=== PATIENT | female | born 1960 | race Caucasian/White ===

== ENCOUNTER 2022-04-11 01:14 | Observation (INO) | payer MEDICARE ==
[2022-04-11] MEDS ORDERED: Zithromax 500 MG/ 250 ML NaCl Premix 500 MG/250 ML IVPB IV STA (01:45)
[2022-04-11] MEDS ORDERED: solu-MEDROL 125 MG, Sterile H2O 10 ml 2 ML IV ONE ×2 (01:50)
[2022-04-11] MEDS ORDERED: Sterile H2O 10 ml IJ ONE ×2 (01:56→06:02)
[2022-04-11] MEDS ORDERED: solu-MEDROL ONE ×3 (01:56→17:02)
[2022-04-11] MEDS ORDERED: Zithromax 500 MG/ 250 ML NaCl Premix 500 MG/250 ML IVPB IV ONE (01:56)
[2022-04-11] MEDS ORDERED: DUONEB 0.5-3 MG/3 ml Neb IH ONE (02:01)
[2022-04-11] MEDS: DUONEB 0.5-3 MG/3 ml Neb IH SCH ×5 (02:03→18:56)
[2022-04-11 02:28] LABS: Absolute Neutrophil Ct (ANC) 8.29 x10^3/uL (1.4-6.9); Basophil (Absolute #) 0.07 x10^3/uL (0-0.4); Eosinophil % 0.1 % (0.00-5.0); Eosinophil (Absolute #) 0.01 x10^3/uL (0-0.5); Hematocrit 38.5 % (35-47); Hemoglobin 12.3 g/dL (12.0-16.0); Lymphocyte (Absolute #) 0.68 x10^3/uL (1.0-4.6); Lymphocytes % 6.9 % (24.0-44.0); Mean Cell Volume 104.9 fL (78-100); Mean Corpuscular Hemoglobin 33.5 pg (26-32); Mean Corpuscular Hgb Concent. 31.9 g/dL (32-36); Mean Platelet Volume 9.3 fL (7.5-11.0); Monocyte (Absolute #) 0.81 x10^3/uL (0.0-1.3); Monocytes % 8.2 % (0.0-12.0); Neutrophil % 83.7 % (36.0-66.0); Platelet Count 157 x10^3/uL (150-450); Red Blood Count 3.67 x10^6/uL (4.1-5.4); Red Cell Distribution Width 12.6 % (11.5-14.0); White Blood Count 9.9 x10^3/uL (4.0-10.5)
[2022-04-11 02:49] LABS: INR 0.97 (0.8-3.0); PROTIME 10.3 SECONDS (9.4-12.5); PTT 30.9 SECONDS (25.1-36.5)
[2022-04-11 02:53] LABS: ALBUMIN 3.7 g/dL (3.5-5.0); ALKALINE PHOSPHATASE 51 U/L (38-126); ANION GAP 7.8 MEQ/L (5-15); BLOOD UREA NITROGEN 6 mg/dL (7-17); CHLORIDE 91 mmol/L (98-107); Calcium 7.7 mg/dL (8.4-10.2); Carbon Dioxide 28 mmol/L (22-30); Creatinine 1 0.35 mg/dL (0.52-1.04); EST GLOMERULAR FILTRATION RATE > 60.0 ML/MIN; Glucose 131 mg/dL (74-106); MAGNESIUM 1.9 mg/dL (1.6-2.3); NT PRO BNP 777 pg/mL (0-900); Potassium 3.8 mmol/L (3.5-5.1); SGOT/AST 29 U/L (14-36); SGPT/ALT 17 U/L (0-35); SODIUM 123 mmol/L (137-145)
[2022-04-11 03:06] LABS: INFLUENZA B NEGATIVE (NEGATIVE); RESPIRATORY SYNCTIAL VIRUS NEGATIVE (Negative); SARS-CoV-2 Xpert Express NEGATIVE (NEGATIVE)
[2022-04-11 03:19] LABS: INFLUENZA A POSITIVE (NEGATIVE)
[2022-04-11] MEDS: Sodium Chloride 0.9% 1000 ML 1,000 ML IV SCH ×3 (03:31→22:09)
--- NOTE | 2022-04-11 03:52 | ERPHSYRPT ---
- History of Present Illness Source: patient Exam Limitations: no limitations Patient Subjective Stated Complaint: pt states she has been coughing fo three days and states she has COPD and feels SOB, not able to sleep because of her cough. Triage Nursing Assessment: pt alert and oriented, laying in bed, SOB Physician History: 62yo F presents to the ER w/ a 3 day hx of worsening SOB. She reports a dry cough and congestion for the past 4 days. She has had sick contacts just prior to getting sick. She reports F/C, wheezing, orthopnea and worsening SOB today. She has been using Albuterol inhaler 3-4 times per day and Mucinex w/ minimal relief. She denies CP, N/V. She continues to smoke 1-2ppd. Timing/Duration: day(s) (3) Activities at Onset: rest Severity of Dyspnea-Max: severe Severity of Dyspnea-Current: severe Possible Cause: illness exposure Modifying Factors: Improves With: albuterol inhaler, albuterol nebulizer, oxygen. Worsens With: activity, coughing, deep breath, exertion, lying down Associated Symptoms: cough, fever, loss of appetite, wheezing, weakness, chills, painful breathing, No chest pain/discomfort, No edema, No calf pain, No leg swelling Allergies/Adverse Reactions: No Known Drug Allergies Allergy (Unverified 04/11/22 01:34) Home Medications: Amlodipine Besylate 5 mg [Norvasc 5 mg] 5 mg PO DAILY 04/11/22 [History] Fenofibrate Nanocrystallized [Fenofibrate] 48 mg PO DAILY 04/11/22 [History] Gabapentin [Neurontin ] 300 mg PO BID 04/11/22 [History] Levothyroxine Sodium 50 mcg PO DAILY 04/11/22 [History] Metoprolol Tartrate 50 mg [Lopressor 50 MG] 50 mg PO BID 04/11/22 [History] Mirtazapine 45 mg PO HS 04/11/22 [History] Quetiapine Fumarate 400 mg PO HS 04/11/22 [History] buPROPion HCL [Bupropion HCl Sr] 150 mg PO BID 04/11/22 [History] Hx Influenza Vaccination/Date Given: Yes Hx Pneumococcal Vaccination/Date Given: No Travel Risk - International Travel Have you traveled outside of the country in past 3 weeks: No - Coronavirus Screening Are you exhibiting any of the following symptoms?: Yes Symptoms: Cough: New Onset, Shortness of Breath Close contact with a COVID-19 positive Pt in past 14-21 Days: No - Vaccine Status Have you recieved a Covid-19 vaccination: Yes [address] Res[employer]: Pfizer - Vaccination Dates Date of 2cond Vaccination (if applicable): unknown - Review of Systems Constitutional: Fever, Chills, Fatigue, Malaise, Weakness Eyes: No Symptoms Ears, Nose, & Throat: No Symptoms Respiratory: Cough, Dyspnea, Dyspnea on Exertion (SWARTZ), Wheezing Cardiac: Orthopnea, No Chest Pain, No Edema, No PND Abdominal/Gastrointestinal: No Symptoms Genitourinary Symptoms: No Symptoms Musculoskeletal: No Symptoms Skin: No Symptoms Neurological: No Symptoms Psychological: No Symptoms Endocrine: No Symptoms Hematologic/Lymphatic: No Symptoms Immunological/Allergic: No Symptoms All Other Systems: Reviewed and Negative - Past Medical History Pertinent Past Medical History: Yes Neurological History: Peripheral Neuropathy Cardiac History: Hypertension Respiratory History: COPD Psycho-Social History: Bipolar, Depression Other Medical History: infection in knee - Past Surgical History Past Surgical History: Yes Other Surgical History: 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, ablasion, jaw wired shut - Social History Smoking Status: Current every day smoker Drug Use: none Patient Lives Alone: No - Nursing Vital Signs Nursing Vital Signs: Initial Vital Signs Temperature 98.6 F 04/11/22 01:16 Respiratory Rate 93 H 04/11/22 01:16 O2 Sat by Pulse Oximetry 97 04/11/22 01:16 Pain Scale Pain Intensity 6 - Physical Exam General Appearance: moderate distress Eye Exam: PERRL/EOMI Ears, Nose, Throat Exam: hearing grossly normal Neck Exam: normal inspection, non-tender, supple, full range of motion Respiratory Exam: respiratory distress, diminished breath sounds, wheezing, No accessory muscle use Cardiovascular/Chest Exam: normal heart sounds, regular rate/rhythm Abdominal/Gastrointestinal Exam: soft, No tenderness, No distention, No guarding, No rebound Extremity Exam: No no calf tenderness, No swelling, No melani's sign Neurologic Exam: alert, oriented x 3, cooperative Skin Exam: normal color, warm, dry SpO2 Interpretation: normal SpO2: 97 O2 Delivery: Nasal Cannula - Course Nursing assessment & vital signs reviewed: Yes EKG Interpreted by Me: RATE (92), Sinus Rhythm, NORMAL AXIS, NORMAL INTERVALS, NORMAL QRS, NORMAL ST-T - Radiology Exams Chest X-ray Interpretation: Interpreted by me, Other (hyperinflated) Ordered Tests: Medication Summary Discontinued Medications Generic Name Dose Route Start Last Admin Trade Name Freq PRN Reason Stop Dose Admin Albuterol/Ipratropium 3 ml 04/11/22 01:51 04/11/22 04:54 Ipratropium/Albuterol Sulfate 3 Ml Ampul.Neb 05/11/22 01:50 Not Given Q4HRT RADHA Albuterol/Ipratropium Confirm 04/11/22 02:01 Ipratropium/Albuterol Sulfate 3 Ml Ampul.Neb Administered 04/11/22 02:02 Dose 3 ml IH .STK-MED ONE Albuterol/Ipratropium 3 ml 04/11/22 07:00 04/12/22 07:23 Ipratropium/Albuterol Sulfate 3 Ml Ampul.Counts include 234 beds at the [facility] 05/11/22 06:59 3 ml Q6HRT RADHA Administration Amlodipine Besylate 5 mg 04/12/22 10:00 Amlodipine Besylate 5 Mg Tablet PO 05/12/22 09:59 DAILY RADHA Azithromycin 250 mg 04/11/22 22:00 04/11/22 21:34 Azithromycin 250 Mg Tablet PO 04/15/22 21:59 250 mg DAILY RADHA Administration Bupropion HCl 150 mg 04/11/22 22:00 04/11/22 21:35 Bupropion Hcl 150 Mg Tablet Sr PO 04/13/22 21:59 150 mg BID RADHA Administration Methylprednisolone Sodium 0 mg 04/11/22 01:50 04/11/22 01:58 Succinate 125 mg/ Sterile IV 04/11/22 01:51 125 mg Water 2 ml STAT ONE Administration Methylprednisolone Sodium 0 mg 04/11/22 06:00 04/12/22 05:16 Succinate 60 mg/ Sterile Water IV 05/11/22 05:59 60 mg 2 ml Q6HT RADAH Administration Enoxaparin Sodium 40 mg 04/11/22 10:00 04/11/22 10:40 Enoxaparin Sodium 40 Mg/0.4 Ml Syringe SQ 05/11/22 09:59 40 mg DAILY RADHA Administration Famotidine 20 mg 04/11/22 10:00 04/11/22 21:35 Famotidine 20 Mg/1 Vial IV 05/11/22 09:59 20 mg Q12HT RADHA Administration Fenofibrate 72.5 mg 04/12/22 10:00 Fenofibrate,Micronized 145 Mg Tablet PO 05/12/22 09:59 DAILY RADHA Gabapentin 300 mg 04/11/22 22:00 04/11/22 21:34 Gabapentin 300 Mg Capsule PO 05/11/22 21:59 300 mg BID RADHA Administration Azithromycin 500 mg in 250 mls @ 250 mls/hr 04/11/22 01:45 04/11/22 02:58 Zithromax 500 Mg/ 250 Ml Nacl Premix IV 04/11/22 02:44 Infused STAT STA Infusion Azithromycin Confirm 04/11/22 01:56 Zithromax 500 Mg/ 250 Ml Nacl Premix Administered 04/11/22 01:57 Dose 500 mg in 250 mls @ ud IV .STK-MED ONE Sodium Chloride 1,000 mls @ 100 mls/hr 04/11/22 03:15 04/11/22 22:09 Sodium Chloride 0.9% 1000 Ml IV 05/11/22 03:14 100 mls/hr .Q10H RADHA Administration Levothyroxine Sodium 50 mcg 04/12/22 10:00 Levothyroxine Sodium 50 Mcg Tablet PO 05/12/22 09:59 DAILY RADHA Lorazepam 0.5 mg 04/11/22 18:51 Lorazepam 0.5 Mg Tablet PO 05/11/22 18:50 TID PRN PRN ANXIETY Methylprednisolone Sodium Succinate Confirm 04/11/22 01:56 Methylprednis Sod Succ 125 Mg/2 Ml Vial Administered 04/11/22 01:57 Dose 125 mg .ROUTE .STK-MED ONE Methylprednisolone Sodium Succinate Confirm 04/11/22 06:02 Methylprednis Sod Succ 125 Mg/2 Ml Vial Administered 04/11/22 06:03 Dose 125 mg .ROUTE .STK-MED ONE Methylprednisolone Sodium Succinate Confirm 04/11/22 17:02 Methylprednis Sod Succ 125 Mg/2 Ml Vial Administered 04/11/22 17:03 Dose 125 mg .ROUTE .STK-MED ONE Metoprolol Tartrate 50 mg 04/11/22 22:00 04/11/22 21:34 Metoprolol Tartrate 50 Mg Tablet PO 05/11/22 21:59 50 mg BID RADHA Administration Mirtazapine 45 mg 04/11/22 22:00 04/11/22 21:34 Mirtazapine 30 Mg Tablet PO 05/11/22 21:59 45 mg HS RADHA Administration Nicotine 21 mg 04/11/22 10:30 04/11/22 13:36 Nicotine 21 Mg/Patch Patch TOP 05/11/22 10:29 Not Given Q24H RADHA Quetiapine Fumarate 400 mg 04/11/22 22:00 04/11/22 21:48 Quetiapine Fumarate 100 Mg Tablet PO 05/11/22 21:59 Not Given HS RADHA Sterile Water Confirm 04/11/22 01:56 Water For Injection,Sterile 10 Ml Vial Administered 04/11/22 01:57 Dose 10 ml IJ .STK-MED ONE Sterile Water Confirm 04/11/22 06:02 Water For Injection,Sterile 10 Ml Vial Administered 04/11/22 06:03 Dose 10 ml IJ .STK-MED ONE Lab/Rad Data: Laboratory Result Diagrams 04/11/22 02:15 04/11/22 02:15 Laboratory Results 04/11/22 04/11/22 04/11/22 Range/Units 03:50 03:50 02:19 WBC (4.0-10.5) x10^3/uL RBC (4.1-5.4) x10^6/uL Hgb (12.0-16.0) g/dL Hct (35-47) % MCV (78-100) fL MCH (26-32) pg MCHC (32-36) g/dL RDW (11.5-14.0) % Plt Count (150-450) x10^3/uL MPV (7.5-11.0) fL Gran % (36.0-66.0) % Immature Gran % (Auto) (0.00-0.4) % Nucleat RBC Rel Count (0.00-0.1) % Eos # (Auto) (0-0.5) x10^3/uL Immature Gran # (Auto) (0.00-0.03) x10^3u/L Absolute Lymphs (auto) (1.0-4.6) x10^3/uL Absolute Monos (auto) (0.0-1.3) x10^3/uL Absolute Nucleated RBC (0.00-0.01) x10^3u/L Lymphocytes % (24.0-44.0) % Monocytes % (0.0-12.0) % Eosinophils % (0.00-5.0) % Basophils % (0.0-0.4) % Absolute Granulocytes (1.4-6.9) x10^3/uL Basophils # (0-0.4) x10^3/uL PT (9.4-12.5) SECONDS INR (0.8-3.0) APTT (25.1-36.5) SECONDS Sodium (137-145) mmol/L Potassium (3.5-5.1) mmol/L Chloride (98-107) mmol/L Carbon Dioxide (22-30) mmol/L Anion Gap (5-15) MEQ/L BUN (7-17) mg/dL Creatinine (0.52-1.04) mg/dL Estimated GFR ML/MIN Glucose (74-106) mg/dL Serum Osmolality Pending Lactic Acid 1.2 (0.4-2.0) Calcium (8.4-10.2) mg/dL Magnesium (1.6-2.3) mg/dL Total Bilirubin (0.2-1.3) mg/dL AST (14-36) U/L ALT (0-35) U/L Alkaline Phosphatase (38-126) U/L Troponin I (0.000-0.034) ng/mL NT-Pro-B Natriuret Pep (0-900) pg/mL Serum Total Protein (6.3-8.2) g/dL Albumin (3.5-5.0) g/dL Procalcitonin (0.030-0.080) ng/mL Urine Osmolality 204 (.) mOsmol/kg Ur Random Creatinine 43.4 mg/dl U Random Total Protein 35.0 (<12) mg/dl U [place] Prot/Creat Ratio 0.81 H (0.0-0.15) mg/mg Urine Sodium 5 L (30-90) mmol/L Influenza Type A Ag (NEGATIVE) Influenza Type B Ag (NEGATIVE) RSV (PCR) (Negative) SARS-CoV-2 (PCR) (NEGATIVE) 04/11/22 04/11/22 04/11/22 Range/Units 02:15 02:15 02:15 WBC (4.0-10.5) x10^3/uL RBC (4.1-5.4) x10^6/uL Hgb (12.0-16.0) g/dL Hct (35-47) % MCV (78-100) fL MCH (26-32) pg MCHC (32-36) g/dL RDW (11.5-14.0) % Plt Count (150-450) x10^3/uL MPV (7.5-11.0) fL Gran % (36.0-66.0) % Immature Gran % (Auto) (0.00-0.4) % Nucleat RBC Rel Count (0.00-0.1) % Eos # (Auto) (0-0.5) x10^3/uL Immature Gran # (Auto) (0.00-0.03) x10^3u/L Absolute Lymphs (auto) (1.0-4.6) x10^3/uL Absolute Monos (auto) (0.0-1.3) x10^3/uL Absolute Nucleated RBC (0.00-0.01) x10^3u/L Lymphocytes % (24.0-44.0) % Monocytes % (0.0-12.0) % Eosinophils % (0.00-5.0) % Basophils % (0.0-0.4) % Absolute Granulocytes (1.4-6.9) x10^3/uL Basophils # (0-0.4) x10^3/uL PT (9.4-12.5) SECONDS INR (0.8-3.0) APTT (25.1-36.5) SECONDS Sodium (137-145) mmol/L Potassium (3.5-5.1) mmol/L Chloride (98-107) mmol/L Carbon Dioxide (22-30) mmol/L Anion Gap (5-15) MEQ/L BUN (7-17) mg/dL Creatinine (0.52-1.04) mg/dL Estimated GFR ML/MIN Glucose (74-106) mg/dL Serum Osmolality Lactic Acid (0.4-2.0) Calcium (8.4-10.2) mg/dL Magnesium (1.6-2.3) mg/dL Total Bilirubin (0.2-1.3) mg/dL AST (14-36) U/L ALT (0-35) U/L Alkaline Phosphatase (38-126) U/L Troponin I < 0.012 (0.000-0.034) ng/mL NT-Pro-B Natriuret Pep (0-900) pg/mL Serum Total Protein (6.3-8.2) g/dL Albumin (3.5-5.0) g/dL Procalcitonin 0.086 H (0.030-0.080) ng/mL Urine Osmolality (.) mOsmol/kg Ur Random Creatinine mg/dl U Random Total Protein (<12) mg/dl U [place] Prot/Creat Ratio (0.0-0.15) mg/mg Urine Sodium (30-90) mmol/L Influenza Type A Ag POSITIVE (NEGATIVE) Influenza Type B Ag NEGATIVE (NEGATIVE) RSV (PCR) NEGATIVE (Negative) SARS-CoV-2 (PCR) NEGATIVE (NEGATIVE) 04/11/22 04/11/22 04/11/22 Range/Units 02:15 02:15 02:15 WBC 9.9 (4.0-10.5) x10^3/uL RBC 3.67 L (4.1-5.4) x10^6/uL Hgb 12.3 (12.0-16.0) g/dL Hct 38.5 (35-47) % MCV 104.9 H (78-100) fL MCH 33.5 H (26-32) pg MCHC 31.9 L (32-36) g/dL RDW 12.6 (11.5-14.0) % Plt Count 157 (150-450) x10^3/uL MPV 9.3 (7.5-11.0) fL Gran % 83.7 H (36.0-66.0) % Immature Gran % (Auto) 0.4 (0.00-0.4) % Nucleat RBC Rel Count 0.0 (0.00-0.1) % Eos # (Auto) 0.01 (0-0.5) x10^3/uL Immature Gran # (Auto) 0.04 H (0.00-0.03) x10^3u/L Absolute Lymphs (auto) 0.68 L (1.0-4.6) x10^3/uL Absolute Monos (auto) 0.81 (0.0-1.3) x10^3/uL Absolute Nucleated RBC 0.00 (0.00-0.01) x10^3u/L Lymphocytes % 6.9 L (24.0-44.0) % Monocytes % 8.2 (0.0-12.0) % Eosinophils % 0.1 (0.00-5.0) % Basophils % 0.7 (0.0-0.4) % Absolute Granulocytes 8.29 H (1.4-6.9) x10^3/uL Basophils # 0.07 (0-0.4) x10^3/uL PT 10.3 (9.4-12.5) SECONDS INR 0.97 (0.8-3.0) APTT 30.9 (25.1-36.5) SECONDS Sodium 123 L (137-145) mmol/L Potassium 3.8 (3.5-5.1) mmol/L Chloride 91 L (98-107) mmol/L Carbon Dioxide 28 (22-30) mmol/L Anion Gap 7.8 (5-15) MEQ/L BUN 6 L (7-17) mg/dL Creatinine 0.35 L (0.52-1.04) mg/dL Estimated GFR > 60.0 ML/MIN Glucose 131 H (74-106) mg/dL Serum Osmolality Lactic Acid (0.4-2.0) Calcium 7.7 L (8.4-10.2) mg/dL Magnesium 1.9 (1.6-2.3) mg/dL Total Bilirubin 0.50 (0.2-1.3) mg/dL AST 29 (14-36) U/L ALT 17 (0-35) U/L Alkaline Phosphatase 51 (38-126) U/L Troponin I (0.000-0.034) ng/mL NT-Pro-B Natriuret Pep 777 (0-900) pg/mL Serum Total Protein 7.0 (6.3-8.2) g/dL Albumin 3.7 (3.5-5.0) g/dL Procalcitonin (0.030-0.080) ng/mL Urine Osmolality (.) mOsmol/kg Ur Random Creatinine mg/dl U Random Total Protein (<12) mg/dl U [place] Prot/Creat Ratio (0.0-0.15) mg/mg Urine Sodium (30-90) mmol/L Influenza Type A Ag (NEGATIVE) Influenza Type B Ag (NEGATIVE) RSV (PCR) (Negative) SARS-CoV-2 (PCR) (NEGATIVE) - Progress Progress: improved Air Movement: fair Progress Note: Improved air movement after steroids and nebs. Flu A positive. Na 123 saline given and urine studies ordered. Discussed w/ Dr. Cobb and will accept for observation. 04/13/22 17:06 04/13/22 17:07 Blood Culture(s) Obtained: Yes Antibiotics given: No Discussed with : Nelson Will see patient in: hospital (observation) Counseled pt/family regarding: lab results, diagnosis, rad results, smoking cessation - Departure Departure Disposition: Observation Clinical Impression: COPD exacerbation, Influenza A, Hyponatremia Condition: Good Critical Care Time: Yes Critical Care Time(excluding separately billable procedures): Critical 30-74 mins
[2022-04-11 04:58] LABS: Creatinine, Urine Random 43.4 mg/dl; Protein Creatinine Ratio, Ran. 0.81 mg/mg (0.0-0.15)
[2022-04-11] MEDS: solu-MEDROL 60 MG, Sterile H2O 10 ml 2 ML IV SCH ×8 (06:02→23:21)
[2022-04-11 08:18] LABS: ANION GAP 6.4 MEQ/L (5-15); BLOOD UREA NITROGEN 6 mg/dL (7-17); CHLORIDE 99 mmol/L (98-107); Calcium 7.7 mg/dL (8.4-10.2); Carbon Dioxide 29 mmol/L (22-30); Creatinine 1 0.28 mg/dL (0.52-1.04); EST GLOMERULAR FILTRATION RATE > 60.0 ML/MIN; Glucose 142 mg/dL (74-106); Potassium 4.1 mmol/L (3.5-5.1); SODIUM 130 mmol/L (137-145)
[2022-04-11 08:29] LABS: Hematocrit 37.4 % (35-47); Hemoglobin 11.9 g/dL (12.0-16.0); Mean Cell Volume 104.2 fL (78-100); Mean Corpuscular Hemoglobin 33.1 pg (26-32); Mean Corpuscular Hgb Concent. 31.8 g/dL (32-36); Mean Platelet Volume 9.7 fL (7.5-11.0); Platelet Count 175 x10^3/uL (150-450); Red Blood Count 3.59 x10^6/uL (4.1-5.4); Red Cell Distribution Width 12.5 % (11.5-14.0); White Blood Count 6.9 x10^3/uL (4.0-10.5)
--- NOTE | 2022-04-11 09:38 | XRAY ---
Indication: Dyspnea. Comparison: None Portable chest hyperinflated and clear with incidental left base calcified granuloma. Heart not enlarged. Bony thorax intact with mild osteopenia and degenerative changes. Impression: Nonacute hyperinflated chest with chronic features.
[2022-04-11] MEDS ORDERED: ENOXAPARIN SODIUM SQ SCH (10:00)
[2022-04-11] MEDS: Nicoderm CQ 21 MG TOP SCH ×2 (10:39→13:36)
[2022-04-11] MEDS: Pepcid 20 MG VIAL IV SCH ×2 (10:40→21:35)
[2022-04-11 11:19] LABS: ANION GAP 7.9 MEQ/L (5-15); BLOOD UREA NITROGEN 6 mg/dL (7-17); CHLORIDE 98 mmol/L (98-107); Calcium 7.8 mg/dL (8.4-10.2); Carbon Dioxide 29 mmol/L (22-30); Creatinine 1 0.41 mg/dL (0.52-1.04); EST GLOMERULAR FILTRATION RATE > 60.0 ML/MIN; Glucose 189 mg/dL (74-106); Potassium 3.8 mmol/L (3.5-5.1); SODIUM 132 mmol/L (137-145)
[2022-04-11 16:24] LABS: ANION GAP 5.3 MEQ/L (5-15); BLOOD UREA NITROGEN 6 mg/dL (7-17); CHLORIDE 100 mmol/L (98-107); Calcium 7.6 mg/dL (8.4-10.2); Carbon Dioxide 30 mmol/L (22-30); Creatinine 1 0.34 mg/dL (0.52-1.04); EST GLOMERULAR FILTRATION RATE > 60.0 ML/MIN; Glucose 210 mg/dL (74-106); Potassium 3.7 mmol/L (3.5-5.1); SODIUM 132 mmol/L (137-145)
--- NOTE | 2022-04-11 17:59 | PCM.HP ---
History of Present Illness - Chief Complaint Chief Complaint: COPD exacerbation History of Present Illness: is a 62 year old female patient of Dr Yuniel Hidalgo with COPD who presented to ER in respiratory distress c/o cough , shortness of breath and tested positive for Influenza A . CXR showed nonacute hyperinflated lung,no cardiomegaly. PMHx includes HTN,COPD daily smoker,bipoalar depression. Patient is admitted to Med surg overnight observation and improved with O2 support,IV Solumedrol ,Zithromax , IV fluids and Neb treatments . - Review of Systems Constitutional: Chills, Fatigue Eyes: No Symptoms Ears, Nose, & Throat: Nose Discharge Respiratory: Cough, Short Of Breath, Wheezing Cardiac: Palpitations, No Chest Pain, No Edema Abdominal/Gastrointestinal: No Symptoms Genitourinary Symptoms: No Symptoms Musculoskeletal: No Symptoms Skin: No Symptoms Neurological: No Symptoms Psychological: Depression (Bipolar controlled on Rx) Endocrine: No Symptoms Hematologic/Lymphatic: No Symptoms Immunological/Allergic: No Symptoms Medications & Allergies Home Medications: Home Medication List Amlodipine Besylate 5 mg [Norvasc 5 mg] 5 mg PO DAILY 04/11/22 [History Confirmed 04/11/22] Fenofibrate Nanocrystallized [Fenofibrate] 48 mg PO DAILY 04/11/22 [History Con firmed 04/11/22] Gabapentin [Neurontin ] 300 mg PO BID 04/11/22 [History Confirmed 04/11/22] Levothyroxine Sodium 50 mcg PO DAILY 04/11/22 [History Confirmed 04/11/22] Metoprolol Tartrate 50 mg [Lopressor 50 MG] 50 mg PO BID 04/11/22 [History Confirmed 04/11/22] Mirtazapine 45 mg PO HS 04/11/22 [History Confirmed 04/11/22] Quetiapine Fumarate 400 mg PO HS 04/11/22 [History Confirmed 04/11/22] buPROPion HCL [Bupropion HCl Sr] 150 mg PO BID 04/11/22 [History Confirmed 04/11/22] Albuterol/Ipratropium 3ml Neb* [DUONEB 0.5-3 MG/3 ml Neb] 3 ml IH TID #90 amp 04/12/22 [Rx] Azithromycin 250 mg [Zithromax 250 MG TABLET] 250 mg PO DAILY #6 tablet 04/12/22 [Rx] Methylprednisolone Packet [Medrol Dosepack] 4 mg PO DAILY #1 packet 04/12/22 [Rx] Allergies/Adverse Reactions: Allergies Allergy/AdvReac Type Severity Reaction Status Date / Time No Known Drug Allergies Allergy Unverified 04/11/22 01:34 - Past Medical History Past Medical History: Yes Neurological History: Peripheral Neuropathy ENT History: No Pertinent History Cardiac History: Hypertension Respiratory History: COPD Endocrine Medical History: No Pertinent History Musculoskelatal History: No Pertinent History GI Medical History: No Pertinent History History: No Pertinent History Pyscho-Social History: Bipolar, Depression Reproductive Disorders: No Pertinent History Comment: infection in knee - Female History Are you now?: No - Past Surgical History Past Surgical History: Yes Other Surgical History: 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, ablasion, jaw wired shut - Social History Smoking Status: Current every day smoker Exposure to second hand smoke: Yes Alcohol: Daily Drug Use: none - Physical Exam Vital Signs: Vital Signs - 24 hr Temp Pulse Resp BP Pulse Ox 04/11/22 16:00 97.5 F 99 H 19 129/61 94 L 04/11/22 13:08 95 H 24 90 L 04/11/22 11:26 97.8 F 92 H 19 150/60 90 L 04/11/22 07:59 98 H 18 96 04/11/22 07:26 98.0 F 76 19 107/58 100 04/11/22 04:54 98.1 F 80 22 114/56 98 04/11/22 04:00 77 106/70 98 04/11/22 03:51 97 04/11/22 03:00 83 99/57 97 04/11/22 02:16 77 22 145/95 98 04/11/22 02:03 82 18 98 04/11/22 01:16 98.6 F 93 H 97 General Appearance: no apparent distress Neurologic Exam: alert, oriented x 3, cooperative, normal mood/affect Eye Exam: eyes nml inspection Ears, Nose, Throat Exam: moist mucous membranes, other (mild nasal congestion) Neck Exam: normal inspection Respiratory Exam: diminished breath sounds, wheezing (fine eew left mid) Cardiovascular Exam: regular rate/rhythm Gastrointestinal/Abdomen Exam: soft, No tenderness Back Exam: normal inspection Extremity Exam: normal inspection, No calf tenderness Skin Exam: normal color, warm, dry Results - Labs Lab/Micro Results: Lab Results-Last 24 Hours 04/11/22 04/11/22 04/11/22 Range/Units 02:15 02:15 02:15 WBC 9.9 (4.0-10.5) x10^3/uL RBC 3.67 L (4.1-5.4) x10^6/uL Hgb 12.3 (12.0-16.0) g/dL Hct 38.5 (35-47) % MCV 104.9 H (78-100) fL MCH 33.5 H (26-32) pg MCHC 31.9 L (32-36) g/dL RDW 12.6 (11.5-14.0) % Plt Count 157 (150-450) x10^3/uL MPV 9.3 (7.5-11.0) fL Gran % 83.7 H (36.0-66.0) % Immature Gran % (Auto) 0.4 (0.00-0.4) % Nucleat RBC Rel Count 0.0 (0.00-0.1) % Eos # (Auto) 0.01 (0-0.5) x10^3/uL Immature Gran # (Auto) 0.04 H (0.00-0.03) x10^3u/L Absolute Lymphs (auto) 0.68 L (1.0-4.6) x10^3/uL Absolute Monos (auto) 0.81 (0.0-1.3) x10^3/uL Absolute Nucleated RBC 0.00 (0.00-0.01) x10^3u/L Lymphocytes % 6.9 L (24.0-44.0) % Monocytes % 8.2 (0.0-12.0) % Eosinophils % 0.1 (0.00-5.0) % Basophils % 0.7 (0.0-0.4) % Absolute Granulocytes 8.29 H (1.4-6.9) x10^3/uL Basophils # 0.07 (0-0.4) x10^3/uL PT 10.3 (9.4-12.5) SECONDS INR 0.97 (0.8-3.0) APTT 30.9 (25.1-36.5) SECONDS Sodium 123 L (137-145) mmol/L Potassium 3.8 (3.5-5.1) mmol/L Chloride 91 L (98-107) mmol/L Carbon Dioxide 28 (22-30) mmol/L Anion Gap 7.8 (5-15) MEQ/L BUN 6 L (7-17) mg/dL Creatinine 0.35 L (0.52-1.04) mg/dL Estimated GFR > 60.0 ML/MIN Glucose 131 H (74-106) mg/dL Lactic Acid (0.4-2.0) Calcium 7.7 L (8.4-10.2) mg/dL Magnesium 1.9 (1.6-2.3) mg/dL Total Bilirubin 0.50 (0.2-1.3) mg/dL AST 29 (14-36) U/L ALT 17 (0-35) U/L Alkaline Phosphatase 51 (38-126) U/L Troponin I (0.000-0.034) ng/mL NT-Pro-B Natriuret Pep 777 (0-900) pg/mL Serum Total Protein 7.0 (6.3-8.2) g/dL Albumin 3.7 (3.5-5.0) g/dL Prealbumin (17.6-36.0) mg/dL Procalcitonin (0.030-0.080) ng/mL Ur Random Creatinine mg/dl U Random Total Protein (<12) mg/dl U Ancram Prot/Creat Ratio (0.0-0.15) mg/mg Urine Sodium (30-90) mmol/L Influenza Type A Ag (NEGATIVE) Influenza Type B Ag (NEGATIVE) RSV (PCR) (Negative) SARS-CoV-2 (PCR) (NEGATIVE) 04/11/22 04/11/22 04/11/22 Range/Units 02:15 02:15 02:15 WBC (4.0-10.5) x10^3/uL RBC (4.1-5.4) x10^6/uL Hgb (12.0-16.0) g/dL Hct (35-47) % MCV (78-100) fL MCH (26-32) pg MCHC (32-36) g/dL RDW (11.5-14.0) % Plt Count (150-450) x10^3/uL MPV (7.5-11.0) fL Gran % (36.0-66.0) % Immature Gran % (Auto) (0.00-0.4) % Nucleat RBC Rel Count (0.00-0.1) % Eos # (Auto) (0-0.5) x10^3/uL Immature Gran # (Auto) (0.00-0.03) x10^3u/L Absolute Lymphs (auto) (1.0-4.6) x10^3/uL Absolute Monos (auto) (0.0-1.3) x10^3/uL Absolute Nucleated RBC (0.00-0.01) x10^3u/L Lymphocytes % (24.0-44.0) % Monocytes % (0.0-12.0) % Eosinophils % (0.00-5.0) % Basophils % (0.0-0.4) % Absolute Granulocytes (1.4-6.9) x10^3/uL Basophils # (0-0.4) x10^3/uL PT (9.4-12.5) SECONDS INR (0.8-3.0) APTT (25.1-36.5) SECONDS Sodium (137-145) mmol/L Potassium (3.5-5.1) mmol/L Chloride (98-107) mmol/L Carbon Dioxide (22-30) mmol/L Anion Gap (5-15) MEQ/L BUN (7-17) mg/dL Creatinine (0.52-1.04) mg/dL Estimated GFR ML/MIN Glucose (74-106) mg/dL Lactic Acid (0.4-2.0) Calcium (8.4-10.2) mg/dL Magnesium (1.6-2.3) mg/dL Total Bilirubin (0.2-1.3) mg/dL AST (14-36) U/L ALT (0-35) U/L Alkaline Phosphatase (38-126) U/L Troponin I < 0.012 (0.000-0.034) ng/mL NT-Pro-B Natriuret Pep (0-900) pg/mL Serum Total Protein (6.3-8.2) g/dL Albumin (3.5-5.0) g/dL Prealbumin (17.6-36.0) mg/dL Procalcitonin 0.086 H (0.030-0.080) ng/mL Ur Random Creatinine mg/dl U Random Total Protein (<12) mg/dl U Ancram Prot/Creat Ratio (0.0-0.15) mg/mg Urine Sodium (30-90) mmol/L Influenza Type A Ag POSITIVE (NEGATIVE) Influenza Type B Ag NEGATIVE (NEGATIVE) RSV (PCR) NEGATIVE (Negative) SARS-CoV-2 (PCR) NEGATIVE (NEGATIVE) 04/11/22 04/11/22 04/11/22 Range/Units 02:19 03:50 07:50 WBC (4.0-10.5) x10^3/uL RBC (4.1-5.4) x10^6/uL Hgb (12.0-16.0) g/dL Hct (35-47) % MCV (78-100) fL MCH (26-32) pg MCHC (32-36) g/dL RDW (11.5-14.0) % Plt Count (150-450) x10^3/uL MPV (7.5-11.0) fL Gran % (36.0-66.0) % Immature Gran % (Auto) (0.00-0.4) % Nucleat RBC Rel Count (0.00-0.1) % Eos # (Auto) (0-0.5) x10^3/uL Immature Gran # (Auto) (0.00-0.03) x10^3u/L Absolute Lymphs (auto) (1.0-4.6) x10^3/uL Absolute Monos (auto) (0.0-1.3) x10^3/uL Absolute Nucleated RBC (0.00-0.01) x10^3u/L Lymphocytes % (24.0-44.0) % Monocytes % (0.0-12.0) % Eosinophils % (0.00-5.0) % Basophils % (0.0-0.4) % Absolute Granulocytes (1.4-6.9) x10^3/uL Basophils # (0-0.4) x10^3/uL PT (9.4-12.5) SECONDS INR (0.8-3.0) APTT (25.1-36.5) SECONDS Sodium (137-145) mmol/L Potassium (3.5-5.1) mmol/L Chloride (98-107) mmol/L Carbon Dioxide (22-30) mmol/L Anion Gap (5-15) MEQ/L BUN (7-17) mg/dL Creatinine (0.52-1.04) mg/dL Estimated GFR ML/MIN Glucose (74-106) mg/dL Lactic Acid 1.2 (0.4-2.0) Calcium (8.4-10.2) mg/dL Magnesium (1.6-2.3) mg/dL Total Bilirubin (0.2-1.3) mg/dL AST (14-36) U/L ALT (0-35) U/L Alkaline Phosphatase (38-126) U/L Troponin I < 0.012 (0.000-0.034) ng/mL NT-Pro-B Natriuret Pep (0-900) pg/mL Serum Total Protein (6.3-8.2) g/dL Albumin (3.5-5.0) g/dL Prealbumin (17.6-36.0) mg/dL Procalcitonin (0.030-0.080) ng/mL Ur Random Creatinine 43.4 mg/dl U Random Total Protein 35.0 (<12) mg/dl U Ancram Prot/Creat Ratio 0.81 H (0.0-0.15) mg/mg Urine Sodium 5 L (30-90) mmol/L Influenza Type A Ag (NEGATIVE) Influenza Type B Ag (NEGATIVE) RSV (PCR) (Negative) SARS-CoV-2 (PCR) (NEGATIVE) 04/11/22 04/11/22 04/11/22 Range/Units 07:50 07:50 07:50 WBC 6.9 (4.0-10.5) x10^3/uL RBC 3.59 L (4.1-5.4) x10^6/uL Hgb 11.9 L (12.0-16.0) g/dL Hct 37.4 (35-47) % MCV 104.2 H (78-100) fL MCH 33.1 H (26-32) pg MCHC 31.8 L (32-36) g/dL RDW 12.5 (11.5-14.0) % Plt Count 175 (150-450) x10^3/uL MPV 9.7 (7.5-11.0) fL Gran % (36.0-66.0) % Immature Gran % (Auto) (0.00-0.4) % Nucleat RBC Rel Count (0.00-0.1) % Eos # (Auto) (0-0.5) x10^3/uL Immature Gran # (Auto) (0.00-0.03) x10^3u/L Absolute Lymphs (auto) (1.0-4.6) x10^3/uL Absolute Monos (auto) (0.0-1.3) x10^3/uL Absolute Nucleated RBC (0.00-0.01) x10^3u/L Lymphocytes % (24.0-44.0) % Monocytes % (0.0-12.0) % Eosinophils % (0.00-5.0) % Basophils % (0.0-0.4) % Absolute Granulocytes (1.4-6.9) x10^3/uL Basophils # (0-0.4) x10^3/uL PT (9.4-12.5) SECONDS INR (0.8-3.0) APTT (25.1-36.5) SECONDS Sodium 130 L D (137-145) mmol/L Potassium 4.1 (3.5-5.1) mmol/L Chloride 99 (98-107) mmol/L Carbon Dioxide 29 (22-30) mmol/L Anion Gap 6.4 (5-15) MEQ/L BUN 6 L (7-17) mg/dL Creatinine 0.28 L (0.52-1.04) mg/dL Estimated GFR > 60.0 ML/MIN Glucose 142 H (74-106) mg/dL Lactic Acid (0.4-2.0) Calcium 7.7 L (8.4-10.2) mg/dL Magnesium (1.6-2.3) mg/dL Total Bilirubin (0.2-1.3) mg/dL AST (14-36) U/L ALT (0-35) U/L Alkaline Phosphatase (38-126) U/L Troponin I (0.000-0.034) ng/mL NT-Pro-B Natriuret Pep (0-900) pg/mL Serum Total Protein (6.3-8.2) g/dL Albumin (3.5-5.0) g/dL Prealbumin 18.16 (17.6-36.0) mg/dL Procalcitonin (0.030-0.080) ng/mL Ur Random Creatinine mg/dl U Random Total Protein (<12) mg/dl U Ancram Prot/Creat Ratio (0.0-0.15) mg/mg Urine Sodium (30-90) mmol/L Influenza Type A Ag (NEGATIVE) Influenza Type B Ag (NEGATIVE) RSV (PCR) (Negative) SARS-CoV-2 (PCR) (NEGATIVE) 04/11/22 04/11/22 04/11/22 Range/Units 11:04 11:04 16:05 WBC (4.0-10.5) x10^3/uL RBC (4.1-5.4) x10^6/uL Hgb (12.0-16.0) g/dL Hct (35-47) % MCV (78-100) fL MCH (26-32) pg MCHC (32-36) g/dL RDW (11.5-14.0) % Plt Count (150-450) x10^3/uL MPV (7.5-11.0) fL Gran % (36.0-66.0) % Immature Gran % (Auto) (0.00-0.4) % Nucleat RBC Rel Count (0.00-0.1) % Eos # (Auto) (0-0.5) x10^3/uL Immature Gran # (Auto) (0.00-0.03) x10^3u/L Absolute Lymphs (auto) (1.0-4.6) x10^3/uL Absolute Monos (auto) (0.0-1.3) x10^3/uL Absolute Nucleated RBC (0.00-0.01) x10^3u/L Lymphocytes % (24.0-44.0) % Monocytes % (0.0-12.0) % Eosinophils % (0.00-5.0) % Basophils % (0.0-0.4) % Absolute Granulocytes (1.4-6.9) x10^3/uL Basophils # (0-0.4) x10^3/uL PT (9.4-12.5) SECONDS INR (0.8-3.0) APTT (25.1-36.5) SECONDS Sodium 132 L 132 L (137-145) mmol/L Potassium 3.8 3.7 (3.5-5.1) mmol/L Chloride 98 100 (98-107) mmol/L Carbon Dioxide 29 30 (22-30) mmol/L Anion Gap 7.9 5.3 (5-15) MEQ/L BUN 6 L 6 L (7-17) mg/dL Creatinine 0.41 L 0.34 L (0.52-1.04) mg/dL Estimated GFR > 60.0 > 60.0 ML/MIN Glucose 189 H 210 H (74-106) mg/dL Lactic Acid (0.4-2.0) Calcium 7.8 L 7.6 L (8.4-10.2) mg/dL Magnesium (1.6-2.3) mg/dL Total Bilirubin (0.2-1.3) mg/dL AST (14-36) U/L ALT (0-35) U/L Alkaline Phosphatase (38-126) U/L Troponin I < 0.012 (0.000-0.034) ng/mL NT-Pro-B Natriuret Pep (0-900) pg/mL Serum Total Protein (6.3-8.2) g/dL Albumin (3.5-5.0) g/dL Prealbumin (17.6-36.0) mg/dL Procalcitonin (0.030-0.080) ng/mL Ur Random Creatinine mg/dl U Random Total Protein (<12) mg/dl U Ancram Prot/Creat Ratio (0.0-0.15) mg/mg Urine Sodium (30-90) mmol/L Influenza Type A Ag (NEGATIVE) Influenza Type B Ag (NEGATIVE) RSV (PCR) (Negative) SARS-CoV-2 (PCR) (NEGATIVE) - Radiology Impressions Radiology Exams & Impressions: Radiology Procedures Category Date Time Status CHEST 1 VIEW (PORTABLE) Stat Exams 04/11/22 01:48 Completed - Other Procedures and Tests Respiratory Therapy 04/11/22 02:02 Respiratory Therapy Assessment DAILY 04/11/22 04:13 Oxygen Nasal Cannula 3 lpm 04/11/22 17:53 RT Miscellaneous Order ROUTINE Assessment/Plan (1) Influenza A Status: Acute Assessment & Plan: supportive care Code(s): J10.1 - FLU DUE TO OTH IDENT INFLUENZA VIRUS W OTH RESP MANIFEST (2) COPD exacerbation Status: Acute Assessment & Plan: Improved with IV fluids,Solumedrol,Zithromwx,Neb treatments Code(s): J44.1 - CHRONIC OBSTRUCTIVE PULMONARY DISEASE W (ACUTE) EXACERBATION (3) HTN (hypertension) Status: Chronic Assessment & Plan: monitor,continue home meds Code(s): I10 - ESSENTIAL (PRIMARY) HYPERTENSION (4) Hyponatremia Status: Resolved Code(s): E87.1 - HYPO-OSMOLALITY AND HYPONATREMIA
[2022-04-11] MEDS ORDERED: Ativan 0.5 MG PO PRN (18:51)
[2022-04-11 20:27] LABS: ANION GAP 9.2 MEQ/L (5-15); BLOOD UREA NITROGEN 6 mg/dL (7-17); CHLORIDE 100 mmol/L (98-107); Calcium 7.6 mg/dL (8.4-10.2); Carbon Dioxide 28 mmol/L (22-30); Creatinine 1 0.36 mg/dL (0.52-1.04); EST GLOMERULAR FILTRATION RATE > 60.0 ML/MIN; Glucose 234 mg/dL (74-106); Potassium 3.7 mmol/L (3.5-5.1); SODIUM 134 mmol/L (137-145)
[2022-04-11] MEDS: Seroquel 100 MG PO SCH ×2 (21:35→21:48)
[2022-04-11] MEDS ORDERED: Lopressor 50 MG PO SCH (22:00)
[2022-04-11] MEDS ORDERED: NEURONTIN PO SCH (22:00)
[2022-04-11] MEDS ORDERED: Wellbutrin SR 150 MG PO SCH (22:00)
[2022-04-11] MEDS ORDERED: Zithromax 250 MG TABLET PO SCH (22:00)
[2022-04-11] MEDS ORDERED: REMERON 30 MG PO SCH (22:00)
[2022-04-12] MEDS: DUONEB 0.5-3 MG/3 ml Neb IH SCH ×2 (00:43→07:23)
[2022-04-12 05:06] LABS: Absolute Neutrophil Ct (ANC) 8.45 x10^3/uL (1.4-6.9); Basophil (Absolute #) 0 x10^3/uL (0-0.4); Eosinophil (Absolute #) 0 x10^3/uL (0-0.5); Hematocrit 36.7 % (35-47); Hemoglobin 11.3 g/dL (12.0-16.0); Lymphocyte (Absolute #) 0.36 x10^3/uL (1.0-4.6); Lymphocytes % 3.9 % (24.0-44.0); Mean Corpuscular Hemoglobin 32.9 pg (26-32); Mean Corpuscular Hgb Concent. 30.8 g/dL (32-36); Mean Platelet Volume 9.5 fL (7.5-11.0); Monocyte (Absolute #) 0.29 x10^3/uL (0.0-1.3); Monocytes % 3.2 % (0.0-12.0); Neutrophil % 92.5 % (36.0-66.0); Platelet Count 213 x10^3/uL (150-450); Red Blood Count 3.43 x10^6/uL (4.1-5.4); Red Cell Distribution Width 12.8 % (11.5-14.0); White Blood Count 9.1 x10^3/uL (4.0-10.5)
[2022-04-12] MEDS: solu-MEDROL 60 MG, Sterile H2O 10 ml 2 ML IV SCH ×2 (05:16)
[2022-04-12 05:31] LABS: ALBUMIN 3.3 g/dL (3.5-5.0); ALKALINE PHOSPHATASE 48 U/L (38-126); ANION GAP 6.7 MEQ/L (5-15); BLOOD UREA NITROGEN 6 mg/dL (7-17); CHLORIDE 103 mmol/L (98-107); Calcium 7.8 mg/dL (8.4-10.2); Carbon Dioxide 31 mmol/L (22-30); Creatinine 1 0.34 mg/dL (0.52-1.04); EST GLOMERULAR FILTRATION RATE > 60.0 ML/MIN; Glucose 151 mg/dL (74-106); Potassium 3.7 mmol/L (3.5-5.1); SGOT/AST 27 U/L (14-36); SGPT/ALT 17 U/L (0-35); SODIUM 138 mmol/L (137-145); Total Protein 6.6 g/dL (6.3-8.2)
[2022-04-12 08:01] VITALS: BP 151/63; PULSE 93
[2022-04-12 08:16] LABS: Slide Review 1 YES
[2022-04-12] MEDS ORDERED: Tricor 145 MG PO SCH (10:00)
[2022-04-12] MEDS ORDERED: SYNTHROID 50 MCG PO SCH (10:00)
[2022-04-12] MEDS ORDERED: NON-FORMULARY ITEM (Fenofibrate Nanocrystallized [Fenofibrate] 48 MG Tablet) PO SCH (10:00)
[2022-04-12] MEDS ORDERED: NORVASC 5 MG PO SCH (10:00)
--- NOTE | 2022-04-12 10:16 | PCM.DCORD ---
- Discharge Disposition: Home, Self-Care Condition: Good Prescriptions: New Albuterol/Ipratropium 3ml Neb* [DUONEB 0.5-3 MG/3 ml Neb] 3 ml IH TID #90 amp Methylprednisolone Packet [Medrol Dosepack] 4 mg PO DAILY #1 packet Azithromycin 250 mg [Zithromax 250 MG TABLET] 250 mg PO DAILY #6 tablet Continue Gabapentin [Neurontin ] 300 mg PO BID Quetiapine Fumarate 400 mg PO HS Metoprolol Tartrate 50 mg [Lopressor 50 MG] 50 mg PO BID Levothyroxine Sodium 50 mcg PO DAILY Amlodipine Besylate 5 mg [Norvasc 5 mg] 5 mg PO DAILY Fenofibrate Nanocrystallized [Fenofibrate] 48 mg PO DAILY Mirtazapine 45 mg PO HS buPROPion HCL [Bupropion HCl Sr] 150 mg PO BID Follow up with: COLLEEN ELIZONDO [Primary Care Provider] - 04/20/22 2:30 pm
[2022-04-13 10:03] LABS: Osmolality, Urine 204 mOsmol/kg (.)
[2022-04-13 17:03] VITALS: O2SAT 97
== END 2022-04-12 12:00 | disposition home or self-care (01) ==
LOC: ED 01:14 → MED SURG 04:09
PROVIDERS: ADMIT Family Medicine; ATTEND Family Medicine
DX: J10.1 Influenza due to other identified influenza virus with other respiratory manifestations (principal); J44.1 Chronic obstructive pulmonary disease with (acute) exacerbation; I10 Essential (primary) hypertension; E87.1 Hypo-osmolality and hyponatremia; Z72.0 Tobacco use; Z79.899 Other long term (current) drug therapy; Z20.828 Contact with and (suspected) exposure to other viral communicable diseases
CPT/HCPCS: 0241U; 36000; 36415; 71045; 80048; 80053; 82570; 83605; 83735; 83880; 83930; 83935; 84134; 84145; 84156; 84300; 84484; 85025; 85027; 85610; 85730; 87040; 93005; 93041; 94640; 94762; 96365; 96374; 99285; 99291; 93268; J0456; J1650; J2930; A9270-GY; G0378